=== PATIENT | male | born 1985 | race Caucasian/White ===

== ENCOUNTER 2018-12-18 03:39 | Inpatient (IN) | payer OTHER ==
[~2018-12-18] VITALS: Ht 172.7 cm; Wt 77.1 kg
[2018-12-18] MEDS ORDERED: ZESTRIL5 MG PO (04:02)
--- NOTE | 2018-12-18 04:02 | NUR ---
PT REFIERE DOLOR EN CUADRANTE INFERIOR RT DE ABDOMEN QUE LE COMENZO DAISY EN LA MADRUGADA.
--- NOTE | 2018-12-18 04:59 | NUR ---
MR GILLIAN ORIENTA A PTE SOBRE ORDENES MEDICAS, PTE REFIERE ENTENDER. LE COLECTA MUESTRAS, LO CANALIZA Y ADMINISTRA MEDICAMENTOS ERIC ORDEN, UTILIZANDO MEDIDAS ASEPTICAS. PT COMIENZA INGESTA DE CONTRASTE READICAT Y SE NOTIFICA CT. PT TOLERA NO PRESENTA REACCION ADVERSA AL MOMENTO.
--- NOTE | 2018-12-18 07:27 | NUR ---
SE RECIBE PTE ALERTA Y ORIENTADO POR 3, EL MISMO PRESENTA AREA DE VENOPUNCION PATENTE DE MATTHEW DE EDEMA Y ENROJECIMIENTO. PTE SE ENCUENTRA NPO Y PEND A CT PO AT 8:00AM SE MANTIENE PTE BAJO OBSERVACION.
== END 2018-12-24 09:29 | disposition home or self-care (01) | DRG 343 ==
LOC: ER 03:39 → SEC-K 09:40 → SURG 09:40 → O/R 09:40 → SURG 14:44 → SURH 17:33 → SURG 12-19 09:21
PROVIDERS: ADMIT Surgery
PROC: 0DBB4ZZ Excision of Ileum, Percutaneous Endoscopic Approach (ICD-10-PCS; 2018-12-18)
PROC: 0DTJ4ZZ Resection of Appendix, Percutaneous Endoscopic Approach (ICD-10-PCS; principal; 2018-12-18 10:00)
DX: K35.890 Other acute appendicitis without perforation or gangrene (principal); Q43.0 Meckel's diverticulum (displaced) (hypertrophic); D12.1 Benign neoplasm of appendix; I10 Essential (primary) hypertension